=== PATIENT | female | born 1975 | race Caucasian/White ===

== ENCOUNTER → 2017-10-03 | Outpatient (CLI) | payer OTHER ==
--- NOTE | 2017-10-04 08:56 | RAD ---
CT MAXILLOFACIAL WO CONTRAST Indication: Chronic sinusitis Technique: Noncontrast CT imaging was performed of the maxillofacial region, multiplanar reconstruction images submitted. One or more of the following individualized dose reduction techniques were utilized for this examination: 1. Automated exposure control 2. Adjustment of the mA and/or kV according to patient size 3. Use of iterative reconstruction technique. Contrast: None Comparison: None Findings: Paranasal sinuses are mostly aerated other than 1.6 cm either polyp or complex mucous retention cyst of the inferior left maxillary sinus at the floor. Ostiomeatal units are patent bilaterally. There are no air-fluid levels of the paranasal sinuses. IMPRESSION: 1. Paranasal sinuses are mostly aerated other than 1.6 cm either polyp or complex mucous retention cyst of the inferior left maxillary sinus at the floor. Electronically signed by: Sigifredo Olvera MD (10/04/2017 8:53 AM) [id number]
== END | disposition home or self-care (01) ==
LOC: CT 15:16
PROVIDERS: ATTEND Otolaryngology
DX: J01.81 Other acute recurrent sinusitis (principal)
CPT/HCPCS: 70486